=== PATIENT | female | born 1960 | race American Indian/Alaskan Native ===

== ENCOUNTER 2018-01-21 09:14 | Emergency (ER) | payer OTHER ==
[~2018-01-21] VITALS: Ht 154.9 cm; Wt 61.2 kg
[~2018-01-21 09:14] MED LIST: OXYACE5T PO; PROM25 PO
[2018-01-21] MEDS ORDERED: METPRE4DP PO (09:45)
[2018-01-21] MEDS ORDERED: NAPR550 PO (09:45)
[2018-01-21] MEDS ORDERED: Norco 5-325 Ta1 EACH PO (09:45)
== END 2018-01-21 10:06 | disposition home or self-care (01) ==
LOC: ER 09:14
DX: M54.5 Low back pain (principal); F17.210 Nicotine dependence, cigarettes, uncomplicated
CPT/HCPCS: 99283

== ENCOUNTER 2021-02-22 09:22 | Emergency (ER) | payer SELFPAY ==
[~2021-02-22] VITALS: Ht 154.9 cm; Wt 63.5 kg
[~2021-02-22 09:22] MED LIST changes: +METPRE4DP PO; +NAPR550 PO; +Norco 5-325 Ta1 EACH PO
== END 2021-02-22 10:59 | disposition home or self-care (01) ==
LOC: ER 09:22
DX: M72.2 Plantar fascial fibromatosis (principal); F17.200 Nicotine dependence, unspecified, uncomplicated
CPT/HCPCS: 73630; 99283-25

== ENCOUNTER 2024-09-06 16:14 | Emergency (ER) | payer OTHER ==
[~2024-09-06] VITALS: Ht 157.5 cm; Wt 65.8 kg
[2024-09-06] MEDS ORDERED: FAMO10 PO (17:40)
[2024-09-06 18:10] LABS: Albumin, Blood 3.6 g/dL (3.4-5.0); Bilirubin, Total 0.2 mg/dL (0.1-1.0); Bun/Creatinine Ratio 21.3 (12.0-20.0); Calcium, Blood 9.1 mg/dL (8.5-10.1); Creatinine, Blood 0.85 mg/dL (0.40-1.00); Globulin, Blood 3.6 g/dL (2.2-4.0); Magnesium, Blood 2.3 mg/dL (1.6-2.4); Phosphorus, Blood 3.7 mg/dL (2.5-4.9); Potassium, Blood 4.1 mmol/L (3.5-5.5); Total Protein, Blood 7.2 g/dL (6.4-8.2)
[2024-09-06 20:00] VITALS: BP 102/60
== END 2024-09-06 20:06 | disposition home or self-care (01) ==
LOC: ER 16:14
PROVIDERS: Student in an Organized Health Care Education/Training Program
DX: R55 Syncope and collapse (principal); F17.200 Nicotine dependence, unspecified, uncomplicated
CPT/HCPCS: 70450; 72125; 80053; 83735; 84100; 84484; 93005; 93010; 99285-25